=== PATIENT | male | born 1970 | race Caucasian/White ===

== ENCOUNTER 2022-06-05 10:34 | Inpatient (IN) | payer OTHER ==
--- OUTSIDE RECORDS SUMMARY | 2022-06-05 10:38 | XMS REPORT | Continuity of Care Document ---
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 [employer] HMO POS [id number] 2022 00:00:00 QPOS Problems Condition Condition Condition Status Onset Resolution Last Treating Co mments Source Name Details Category Date Date Treatment Clinician Date Prediabete Prediabete Disease Active Vini elsey s s 3- Seybold 00:00: - 00 Externa l Low Low Disease Active Ele testostero testostero -23 Se ybold ne in male ne in male 00:00: - 00 Externa l Class 3 Class 3 Disease Active Ele severe severe 3- Seybold obesity obesity 00:00: - due to due to 00 Externa excess excess l calories calories without without serious serious comorbidit comorbidit y with y with body mass body mass index index (BMI) of (BMI) of 50.0 to 50.0 to 59.9 in 59.9 in adult adult Dyspnea on Dyspnea on Disease Active K elsey exertion exertion 06-05 Seybol d 00:00: - 00 Externa l Family Family Disease Active Ele history of history of 06-05 Se ybold coronary coronary 00:00: - artery artery 00 Externa disease in disease in l father father Snoring Snoring Disease Active Ele 06-05 Seybold 00:00: - 00 Externa l Screening Screening Disease Active Emiliano refugio for lipid for lipid 06-05 Seyb old disorders disorders 00:00: - 00 Externa l Allergies, Adverse Reactions, Alerts Allergy Allergy Status Severity Reaction(s) Onset Inactive Treating Comm ents Source Name Type Date Date Clinician NO KNOWN Allergy Active [facility] Social History Social Habit Start Date Stop Date Quantity Comments Source History SDOH Ele Paresho ld - Alcohol Frequency Externa l History SDOH Ele Parehslauren ld - Alcohol Std Drinks Macadam Raker al History SDOH Ele Paresho ld - Alcohol Binge External Alcohol Comment 2022-06-05 2022-06-05 rarely Ele Se ybold - 00:00:00 00:00:00 External Education 2022-06-05 2022-06-05 18 Ele Seybold - 00:00:00 00:00:00 External Alcohol intake 2022-06-05 2022-06-05 Current drinker Emiliano dolly Noemy - 00:00:00 00:00:00 of alcohol External (finding) Tobacco use and 2022-06-03 2022-06-03 Smokeless tobacco Ke beryl Seybold - exposure 00:00:00 00:00:00 non-user External Sex Assigned At [birth year] [facility] 00:00:00 [facility]00 [facility] Smoking Status Start Date Stop Date Source Never smoked tobacco Ele Yoder old - External Medications Ordered Filled Start Stop Current Ordering Indication Dosage Frequency Signature Comments Components Source Medication Medication Date Date Medication? Clinician (SIG) Name Name Albuterol Yes [id number] 2{puff} Q.25D Inhale 2 Ele HFA 108 (90 3-23 puffs into Se ybold Base) 00:00: the lungs - MCG/ACT IN 00 every 6 Macadam Raker a AERS hours as l needed for wheezing or shortness of breath Testosteron Yes INJECT 1 Ke lsey e Cypionate 2-09 ML Seybold (DEPO-TESTO 00:00: INTRAMUSCU - STERONE) 00 LAR TWICE Macadam Raker a 200 MG/ML A WEEK l intramuscul ar Solution testosteron Yes SMARTSI [facility] cypionate 2-09 Milliliter Katiuska kes (DEPOTESTOT 00:00: (s) IM Medi mony ERONE 00 Twice a Center CYPIONATE) Week 200 mg/mL injection Clobetasol Yes 1 Ele Propionate 2-08 APPLICATIO Sey bold 0.05 % 00:00: N - apply 00 EXTERNALLY Externa externally TWICE A l Ointment DAY 30 DAYS Vital Signs Vital Name Observation Time Observation Value Comments Source Systolic blood 2022-06-05 14:23:00 134 mm[Hg] Ele Seybold - pressure External Diastolic blood 2022-06-05 14:23:00 86 mm[Hg] Tania alberto Seybold - pressure External Heart rate 2022-06-05 14:23:00 56 /min Ele pedrazabold - External Body temperature 2022-06-05 14:23:00 36.72 Ruma Shaniqua ey Seybold - External Respiratory rate 2022-06-05 14:23:00 17 /min Shaniqua pedraza Seybold - External Body height 2022-06-05 14:23:00 188 cm Ele S milobowhit - External Body weight 2022-06-05 14:23:00 185.068 kg Ele S milobold - External BMI 2022-06-05 14:23:00 52.38 kg/m2 Ele pedrazabold - External Oxygen saturation in 2022-06-05 14:23:00 96 /min Ele Salguero - Arterial blood by External Pulse oximetry HEIGHT 2022-05-21 13:18:00 188 cm WEIGHT 2022-05-21 13:18:00 181.484 kg HEIGHT 2022-05-21 13:18:00 188 cm WEIGHT 2022-05-21 13:18:00 181.484 kg Heart rate 2022-05-21 13:18:00 65 /min [facility] Body temperature 2022-05-21 13:18:00 36 Ruma [facility] Body height 2022-05-21 13:18:00 188 cm [facility] Body weight 2022-05-21 13:18:00 181.484 kg [facility] BMI 2022-05-21 13:18:00 51.37 kg/m2 [facility] Systolic blood 2022-05-21 13:18:00 143 mm[Hg] [facility] Diastolic blood 2022-05-21 13:18:00 72 mm[Hg] [facility] Procedures This patient has no known procedures. Plan of Care Planned Activity Planned Date Details Comments Source Future Scheduled 2023-05-[address] [facility] 00:00:00 Counseling and Medical Cente r Screening (12+) [code = Tobacco Cessation Counseling and Screening (12+)] Future Scheduled 2022-03-[address] [facility] 00:00:00 (12+) [code = Medical Center DEPRESSION SCREENING (12+)] Future Scheduled 2021-11-14 INFLUENZA VACCINE (#1) [facility] 00:00:00 [code = INFLUENZA Medical Ce nter VACCINE (#1)] Future Scheduled 2019-08-22 SHINGLES VACCINES ([address] [facility] 00:00:00 2) [code = SHINGLES [facility] VACCINES (1 of 2)] Future Scheduled 2004 Lipid panel (procedure) [facility] 00:00:00 [code = 25609548] Medical Ce nter Future Scheduled 1988 DTAP/TDAP/TD VACCINES [facility] 00:00:00 (1 - Tdap) [code = Medical C enter DTAP/TDAP/TD VACCINES (1 - Tdap)] Future Scheduled 1987-08-22 HEPATITIS C SCREENING [facility] 00:00:00 [code = HEPATITIS C Medical Center SCREENING] Future Scheduled 1970-02-20 COVID-19 VACCINE (#1) [facility] 00:00:00 [code = COVID-[address] VACCINE (#1)] Future Scheduled 1969 CT Colonography (combo) [facility] 00:00:00 [code = CT Colonography [facility] (combo)] Future Scheduled 1970 Screening for malignant [facility] 00:00:00 neoplasm of colon Medical Ce nter (procedure) [code = 184064610] Future Scheduled 1969 Screening for malignant [facility] 00:00:00 neoplasm of colon Medical Ce nter (procedure) [code = 914687045] Future Scheduled 1969 Screening for malignant [facility] 00:00:00 neoplasm of colon Medical Ce nter (procedure) [code = 384906090] Future Scheduled 1969 Screening for malignant [facility] 00:00:00 neoplasm of colon Medical Ce nter (procedure) [code = 828207020] Future Scheduled 1970 Sigmoidoscopy [code = [facility] End Encounter Admission Attending Care Care Encounter Source Date/Time Date/Time Type Type Clinicians Facility Department ID 2022-06-19 2022-06-19 Outpatient ELE REAGAN [id number] Ele 11:30:00 11:30:00 ARELI braga 2022-06-05 2022-06-05 Outpatient ELE REAGAN [id number] Ele 09:15:00 09:15:00 ARELI braga 2022-05-21 2022-05-21 Outpatient EL USAMA [facility] [id number] 13:07:03 13:52:07 [facility] 2022-05-21 2022-05-21 Office Usama [facility] [id number] 13:00:00 13:52:07 Visit [facility] 2022-05-19 2022-05-19 Outpatient ELE REAGAN [id number] Ele 00:00:00 00:00:00 ARELI braga 2022-04-29 2022-04-29 Telephone Hernandez [facility] [id number] 00[facility] 00[facility]00 [facility] Results This patient has no known results.
[2022-06-05] MEDS ORDERED: dilTIAZem HCL 25 MG/5 ML VIAL IV ONE (10:54)
[2022-06-05] MEDS ORDERED: NA CHLORIDE 0.9% 500 ML ONE (11:12)
[2022-06-05 11:13] LABS: Absolute Lymphocytes (CBC) 2.3 K/uL (0.7-4.9); Hematocrit 54.1 % (39.6-49.0); MPV 8.1 fL (7.6-11.3); Protime INR 1.17; RBC Red Blood Cell Count 6.36 M/uL (4.33-5.43)
[2022-06-05 11:30] LABS: Albumin 3.9 g/dL (3.4-5.0); Bilirubin Direct 0.2 mg/dL (0-0.2); Bilirubin Total 0.9 mg/dL (0.2-1.0); Magnesium 2.2 mg/dL (1.6-2.4); Potassium 4.3 mEq/L (3.5-5.1); Protein, Total 7.4 g/dL (6.4-8.2); Troponin High Sensitivity 11.1 pg/mL (<58.9)
[2022-06-05 11:55] LABS: SARS-COV-2 RT PCR NEGATIVE (NEGATIVE)
--- NOTE | 2022-06-05 12:15 | RAD REPORT ---
EXAM DESCRIPTION: Simin Single View06/05/2022 12:02 pm CLINICAL HISTORY: Cough COMPARISON: none FINDINGS: The lungs appear clear of acute infiltrate. The heart is probably upper limits normal siz e IMPRESSION: No acute abnormalities displayed
--- NOTE | 2022-06-05 12:21 | ER ---
Nurse's Notes [facility] Name: Juan Alberto Olmos Age: 51 yrs Sex: Male : 1970 Arrival Date: 06/05/2022 Time: 10:37 Bed 4 Private MD: Diagnosis: New onset Atrial Fibrillation with Rapid Ventricular Response Presentation: 06/05 10:37 Chief complaint: Patient states: sent by Dr. Sanchez for A-fib with RVR. Pt reports SOB aa5 for "months". Pt states "I hadn't seen a doctor in about 15 years". Coronavirus screen: shortness of breath. Ebola Screen: Patient denies travel to an Ebola-affected area in the 21 days before illness onset. Initial Sepsis Screen: Does the patient meet any 2 criteria? RR > 20 per min. HR > 90 bpm. Yes Does the patient have a suspected source of infection? No. Patient's initial sepsis screen is negative. Risk Assessment: Do you want to hurt yourself or someone else? Patient reports no desire to harm self or others. Onset of symptoms was June 05, 2022. 10:37 Method Of Arrival: Ambulatory aa5 10:37 Acuity: ESTELLA 2 aa5 Historical: - Allergies: 10:38 No Known Allergies; aa5 - Home Meds: 10:38 testosterone [Active]; aa5 - PMHx: 10:38 None; aa5 - PSHx: 10:38 Pyloric stenosis; aa5 - Immunization history:: Adult Immunizations unknown. - Social history:: Smoking status: unknown. Screenin:23 [facility] ED Fall Risk Assessment (Adult) History of falling in the last 3 months, jl7 including since admission No falls in past 3 months (0 pts) Confusion or Disorientation No (0 pts) Intoxicated or Sedated No (0 pts) Impaired Gait No (0 pts) Mobility Assist Device Used No (0 pt) Altered Elimination No (0 pt) Score/Fall Risk Level 0 - 2 = Low Risk Oriented to surroundings, Maintained a safe environment. Abuse screen: Denies threats or abuse. Denies injuries from another. Nutritional screening: No deficits noted. Tuberculosis screening: No symptoms or risk factors identified. Assessment: 11:00 General: Appears in no apparent distress. uncomfortable, Behavior is calm, cooperative, jl7 appropriate for age. Pain: Denies pain. Neuro: Level of Consciousness is awake, alert, obeys commands, Oriented to person, place, time, situation. Cardiovascular: Heart tones present Patient's skin is warm and dry. Rhythm is atrial fibrillation with rapid ventricular response. Respiratory: Airway is patent Respiratory effort is even, unlabored, Respiratory pattern is regular, symmetrical. Derm: Skin is pink, warm \\T\\ dry. 12:36 Reassessment: Hospitalist DIGITAL CARTOGRAPHER at bedside assessing pt. [facility] Vital Signs: 10:37 BP 118 / 96; Pulse 130; Resp 22 S; Temp 98.1(O); Pulse Ox 96% on R/A; Weight 185.52 kg; aa5 11:23 BP 138 / 84; Pulse 108; Resp 17; Pulse Ox 93% ; Pain 0/10; jl7 12:41 BP 136 / 92; Pulse 119; Resp 14; Pulse Ox 95% ; jl7 14:30 BP 97 / 61; Pulse 108; Resp 19; Pulse Ox 95% on R/A; jl7 11:23 Pain Scale: Adult [facility] ED Course: 10:37 Patient arrived in ED. ss 10:37 Arm band placed on. aa5 10:39 Supriya Razo FNP is PHCP. jh7 10:39 Alexey Vo MD is Attending Physician. 7 10:47 Sourav Summers, RN is Primary Nurse. bp 10:48 Triage completed. aa5 10:50 Initial lab(s) drawn, by il, sent to lab. EKG done, by ED staff, reviewed by Supriya OVERTON COVID swab sent to lab. Flu and/or RSV swab sent to lab. Inserted saline lock: 20 gauge in left antecubital area, using aseptic technique. Blood collected. 11:20 Jessica Story, RN is Primary Nurse. jl7 11:23 Patient has correct armband on for positive identification. Placed in gown. Bed in low jl7 position. Call light in reach. Side rails up X 1. Client placed on continuous cardiac and pulse oximetry monitoring. NIBP monitoring applied. 12:04 XRAY Chest (1 view) In Process Unspecified. EDMS 12:19 Page Sosa MD is Hospitalizing Provider. [facility] 15:19 No provider procedures requiring assistance completed. Patient admitted, IV remains in jl7 place. intact, No redness/swelling at site. Administered Medications: 10:54 Drug: Diltiazem IVP 5 mg Route: IVP; Site: left antecubital; jl7 12:00 Follow up: Response: No adverse reaction; Cardiac rhythm is unchanged; HR decreased, jl7 remains in a. fib RVR 11:10 Drug: Sodium Chloride 0.9% IVPB 500 ml Route: IVPB; Site: left antecubital; jl7 12:00 Follow up: Response: No adverse reaction; IV Status: Completed infusion; IV Intake: jl7 500ml Medication: 11:23 VIS not applicable for this client. jl7 Intake: 12:00 IV: 500ml; Total: 500ml. jl7 Outcome: 12:20 Decision to Hospitalize by Provider. 7 15:19 Admitted to Tele accompanied by nurse, via wheelchair, room 408, with chart, Report jl7 called to MAZIN Camacho 15:19 Condition: stable 15:19 Discharge instructions given to patient, Instructed on the need for admit, Demonstrated understanding of instructions. 15:23 Patient left the ED. jl7 Signatures: Dispatcher [employer] EDMS Li Paz RN RN aa5 Lilliana Taylor RN RN ss Leal, Jahala, RN RN jl7 Sourav Summers RN RN bp Hadash, Jennifer, FNP FNP 7 Corrections: (The following items were deleted from the chart) 10:49 10:37 Initial Sepsis Screen: Does the patient meet any 2 criteria? HR > 90 bpm. Does aa5 the patient have a suspected source of infection? No. Patient's initial sepsis screen is negative. aa5 10:49 10:38 Home Meds: None; aa5 aa5 12:42 12:37 BP 104 / 74; Pulse 75bpm; Resp 15bpm; Pulse Ox 94%; Pain 7/10, Adult; jl7 jl7
--- NOTE | 2022-06-05 12:21 | EDPHYS ---
Physician Documentation [facility] Name: Juan Alberto Olmos Age: 51 yrs Sex: Male : 1970 Arrival Date: 06/05/2022 Time: 10:37 Bed 4 Private MD: ED Physician Alexey Vo HPI: 06/05 10:35 This 51 yrs old Male presents to ER via Ambulatory with complaints of sent by Dr. vianey Sanchez. 10:35 Onset: The symptoms/episode began/occurred 4 month(s) ago. Associated signs and [facility] symptoms: Pertinent positives: cough, Wheezing, lightheadedness. 51-year-old male sent by Presents for new onset A-fib RVR. The patient denies any symptoms at this time. Reports that in January he had RSV and has had a chronic cough, wheezing, and lightheadedness since then. Reports that he has not seen a doctor in 30 years and made an appointment with Dr. De Jesus today to get evaluated. Denies any past medical history or medications.. Historical: - Allergies: 10:38 No Known Allergies; aa5 - Home Meds: 10:38 testosterone [Active]; aa5 - PMHx: 10:38 None; aa5 - PSHx: 10:38 Pyloric stenosis; aa5 - Immunization history:: Adult Immunizations unknown. - Social history:: Smoking status: unknown. ROS: 10:35 Constitutional: Negative for fever, chills, and weight loss, Eyes: Negative for injury, jh7 pain, redness, and discharge, ENT: Negative for injury, pain, and discharge, Cardiovascular: Negative for chest pain, palpitations, and edema, Respiratory: Negative for shortness of breath, cough, wheezing, and pleuritic chest pain, Abdomen/GI: Negative for abdominal pain, nausea, vomiting, diarrhea, and constipation, Back: Negative for injury and pain, MS/Extremity: Negative for injury and deformity, Skin: Negative for injury, rash, and discoloration, Neuro: Negative for headache, weakness, numbness, tingling, and seizure. 10:35 All other systems are negative. Exam: 10:35 Constitutional: This is a well developed, well nourished patient who is awake, alert, jh7 and in no acute distress. Head/Face: Normocephalic, atraumatic. Eyes: Pupils equal round and reactive to light, extra-ocular motions intact. Lids and lashes normal. Conjunctiva and sclera are non-icteric and not injected. Cornea within normal limits. Periorbital areas with no swelling, redness, or edema. Cardiovascular: Regular rate and rhythm with a normal S1 and S2. No gallops, murmurs, or rubs. Normal PMI, no JVD. No pulse deficits. Respiratory: Lungs have equal breath sounds bilaterally, clear to auscultation and percussion. No rales, rhonchi or wheezes noted. No increased work of breathing, no retractions or nasal flaring. Abdomen/GI: Soft, non-tender, with normal bowel sounds. No distension or tympany. No guarding or rebound. No evidence of tenderness throughout. Skin: Warm, dry with normal turgor. Normal color with no rashes, no lesions, and no evidence of cellulitis. MS/ Extremity: Pulses equal, no cyanosis. Neurovascular intact. Full, normal range of motion. Neuro: Awake and alert, GCS 15, oriented to person, place, time, and situation.Motor strength 5/5 in all extremities. Sensory grossly intact. Normal gait. Vital Signs: 10:37 BP 118 / 96; Pulse 130; Resp 22 S; Temp 98.1(O); Pulse Ox 96% on R/A; Weight 185.52 kg; aa5 11:23 BP 138 / 84; Pulse 108; Resp 17; Pulse Ox 93% ; Pain 0/10; jl7 12:41 BP 136 / 92; Pulse 119; Resp 14; Pulse Ox 95% ; jl7 14:30 BP 97 / 61; Pulse 108; Resp 19; Pulse Ox 95% on R/A; jl7 11:23 Pain Scale: Adult jl7 MDM: 10:39 Patient medically screened. [facility] 12:20 Differential diagnosis: New onset atrial fibrillation with rapid ventricular response. [facility] Data reviewed: vital signs, nurses notes, lab test result(s), EKG, radiologic studies, plain films. Consideration of Admission/Observation Patient was admitted/placed on observation. Management of patient was discussed with the following: Hospitalist: JUAN Templeton with Dr. Ian linaresist. Pack Worker: Dr. Elizabeth, Cardiology. I considered the following discharge prescriptions or medication management in the emergency department Medications were administered in the Emergency Department. See MAR. Independent interpretation of the following test(s) in the Emergency Department EKG: See my EKG interpretation above. Counseling: I had a detailed discussion with the patient and/or guardian regarding: the historical points, exam findings, and any diagnostic results supporting the discharge/admit diagnosis, the need for further work-up and treatment in the hospital. Response to treatment: the patient's symptoms have markedly improved after treatment. ED course: Admitted the patient to Dr. Sosa and consulted Dr. Elizabeth who did not advise anticoagulation due to [id number] score of 0. . 06/05 10:49 Order name: Basic Metabolic Panel; Complete Time: 11:41 [facility] 06/05 10:49 Order name: CBC with Diff; Complete Time: 11:23 [facility] 06/05 10:49 Order name: LFT's; Complete Time: 11:41 [facility] 06/05 10:49 Order name: Magnesium; Complete Time: 11:41 [facility] 06/05 10:49 Order name: NT PRO-BNP; Complete Time: 11:41 [facility] 06/05 10:49 Order name: PT-INR; Complete Time: 11:23 [facility] 06/05 10:49 Order name: Troponin HS; Complete Time: 11:41 [facility] 06/05 10:49 Order name: COVID-19/FLU A+B; Complete Time: 11:55 [facility] 06/05 13:20 Order name: Hemoglobin A1c; Complete Time: 14:33 [facility] 06/05 13:20 Order name: T4 Free; Complete Time: 14:33 [facility] 06/05 13:20 Order name: Thyroid Stimulating Hormone; Complete Time: 14:33 [facility] 06/05 13:20 Order name: Urinalysis w/ reflexes [facility] 06/05 13:20 Order name: Basic Metabolic Panel [facility] 06/05 13:20 Order name: Basic Metabolic Panel [facility] 06/05 13:20 Order name: Basic Metabolic Panel [facility] 06/05 13:20 Order name: Basic Metabolic Panel [facility] 06/05 13:20 Order name: Lipid Profile [facility] 06/05 13:20 Order name: Lipid Profile [facility] 06/05 10:49 Order name: XRAY Chest (1 view); Complete Time: 12:17 [facility] 06/05 10:49 Order name: EKG; Complete Time: 10:50 [facility] 06/05 13:20 Order name: Heart Healthy EDMS 06/05 10:49 Order name: Cardiac monitoring; Complete Time: 10:59 [facility] 06/05 10:49 Order name: EKG - Nurse/Tech; Complete Time: 10:58 [facility] 06/05 10:49 Order name: IV Saline Lock; Complete Time: 11:08 [facility] 06/05 10:49 Order name: Labs collected and sent; Complete Time: 11:08 [facility] 06/05 10:49 Order name: O2 Per Protocol; Complete Time: 10:59 [facility] 06/05 10:49 Order name: O2 Sat Monitoring; Complete Time: 10:58 [facility] EC:35 Rate is 119 beats/min. Rhythm is regular. QRS [place] is Normal. QRS interval is normal at [facility] 76 msec. QT interval is normal at 308 msec. Clinical impression: Atrial Fibrillation. Administered Medications: 10:54 Drug: Diltiazem IVP 5 mg Route: IVP; Site: left antecubital; 7 12:00 Follow up: Response: No adverse reaction; Cardiac rhythm is unchanged; HR decreased, jl7 remains in a. fib RVR 11:10 Drug: Sodium Chloride 0.9% IVPB 500 ml Route: IVPB; Site: left antecubital; 7 12:00 Follow up: Response: No adverse reaction; IV Status: Completed infusion; IV Intake: jl7 500ml Disposition: 14:34 I reviewed the patient's care provided by Advanced Practice Provider \T\ agree w/ [facility] diagnosis \T\ care plan. I personally saw the pt \T\ performed a substantive portion of the visit, incldng all aspects of the (History/Exam/Medical Decision Making). Disposition Summary: 06/05/22 12:20 Hospitalization Ordered Hospitalization Status: Inpatient Admission [facility] Provider: Page Sosa Location: Telemetry/MedSurg (Inpatient) [facility] Condition: Stable [facility] Problem: new [facility] Symptoms: are unchanged [facility] Bed/Room Type: Standard [facility] Room Assignment: 408(06/05/22 14:21) dw Diagnosis - New onset Atrial Fibrillation with Rapid Ventricular Response [facility] Forms: - Medication Reconciliation Form [facility] - SBAR form [facility] Critical care time excluding procedures: 14:35 Critical care time: Bedside Care: 10 minutes, Consultation: 11 minutes, Family jr11 Intervention: 10 minutes. Total time: 31 minutes Signatures: Dispatcher [employer] Krys Edwards Diana, RN RN dw Li Paz RN RN aa5 Jessica Story RN RN jl7 Alexey Vo MD MD jr11 Supriya Razo F[place]ox North7 Corrections: (The following items were deleted from the chart) 10:49 10:38 Home Meds: None; aa5 aa5 14:20 12:20 7 14:21 14:[address] [place] [address]
[2022-06-05] MEDS ORDERED: ONDANSETRON 4 MG/2 ML VIAL IV PRN (13:12)
[2022-06-05] MEDS ORDERED: ACETAMINOPHEN 500 MG TAB PO PRN (13:12)
[2022-06-05] MEDS ORDERED: SOTALOL HCL 80 MG TAB PO ONE ×2 (13:15→21:00)
--- NOTE | 2022-06-05 13:23 | P.HP ---
Certification for Inpatient Patient admitted to: Inpatient With expected LOS: >2 Midnights Patient will require the following post-hospital care: None Practitioner: I am a practitioner with admitting privileges, knowledge of patient current condition, hospital course, and medical plan of care. Services: Services provided to patient in accordance with Admission requirements found in Title 42 Section 412.3 of the Code of Federal Regulations Patient History Date of Service: 06/05/22 Primary Care Provider: Neal Reason for admission: New onset afib History of Present Illness: This is a 51-year-old male with no known prior medical history. Patient presents to the emergency room as recommended by his PCP with complaints of new onset A-fib. Patient reports having RSV 6 weeks ago with wheezing and hypoxia and the reason is made his appointment to go see his PCP. Patient reports that he started feeling better and almost canceled his appointment. He denies any associated symtoms. Patient currently states that he feels much better. Patient was treated with Cardizem in the ER, his current rate ranges between 100-110 bpm. Patient denies any history of alcohol or drug intake. He does reports some anxiety relating to life and high stress. He also report an increase in weight of 40 lbs since March. Patient reports a fairly healthy diet with less than 2000 mony consumed daily. Patient reports no exercise since March but prior to that, he used to run and lift weights 3-5 times a week. Patient report being diagnosed with prediabetes 30 years ago. A1C pending. Patient was seen by cardiology in the ER. We will start patient on sotalol 80 mg with first dose now second dose at 2100. And then Sotalol 80 mg twice daily. Allergies No Known Allergies Allergy (Unverified 06/05/22 13:28) Home Medications: NK [No Home Meds] 06/05/22 - Past Medical/Surgical History -: Pyloric stenosis Past Surgical History: Patient denies surgical history - Family History Father -: Heart disease - Social History Smoking Status: Never smoker Alcohol use: No CD- Drugs: No Caffeine use: Yes Place of Residence: Home Review of Systems 10-point ROS is otherwise unremarkable Physical Examination - Vital Signs Temperature: 98.1 F Blood Pressure: 136/92 Pulse: 102 Respirations: 18 Pulse Ox (%): 93 - Physical Exam General: Alert, In no apparent distress, Oriented x3 HEENT: Atraumatic, Normocephalic Neck: Supple Respiratory: Clear to auscultation bilaterally, Normal air movement Cardiovascular: Normal pulses Gastrointestinal: Normal bowel sounds Musculoskeletal: No clubbing, No contractures Integumentary: No rashes, No breakdown Neurological: Normal speech, Normal strength at 5/5 x4 extr, Normal tone, Sensation intact Lymphatics: No axilla or inguinal lymphadenopathy - Studies Laboratory Data (last 24 hrs) 06/05/22 10:58: PT 12.9 H, INR 1.17 06/05/22 10:58: WBC 9.10, Hgb 17.8, Hct 54.1 H, Plt Count 238 06/05/22 10:58: Sodium 136, Potassium 4.3, BUN 10, Creatinine 1.08, Glucose 107 H, Magnesium 2.2, Total Bilirubin 0.9, AST 24, ALT 36, Alkaline Phosphatase 46 Assessment and Plan - Plan Assessment New onset afib Prediabetic Morbid obesity Plan Cardiology consulted, patient was evaluated at the bedside. Will start patient on Sotalol 80 mg BID. He will received 80 mg now, then 80 mg at 2100. Then resume scheduled dose tomorrow Continue telemetry Counseled on diet and exercise and stress relieving measures A1C pending DVT PPX- Lovenox Full code Discharge Plan: Home Plan to discharge in: 48 Hours - Advance Directives Does patient have a Living Will: No Does patient have a Durable POA for Healthcare: No - Code Status/Comfort Care Code Status Assessed: Yes (Full code) Critical Care: No Time Spent Managing Pts Care (In Minutes): 50
[2022-06-05 14:12] LABS: Thyroid Stimulating Hormone 1.96 uIU/mL (0.358-3.740)
[2022-06-05] MEDS ORDERED: ASPIRIN 81 MG CHEWABLE TABLET ONE (15:03)
--- NOTE | 2022-06-05 15:48 | EKG ---
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
[2022-06-05 16:07] VITALS: BMI 51.0
--- NOTE | 2022-06-05 16:53 | CON ---
Date of Consultation: 06/05/2022 Reason For Consultation: Atrial fibrillation, new onset. History Of Present Illness: A 51-year-old male, obese with obstructive sleep apnea history, presente d with atrial fibrillation with rapid ventricular response. He apparently had some palpitations michael ier, so he booked an appointment to see his primary care physician. He was feeling okay today, so he did not want to even go to the appointment, but his pushed him to do so, and then he was found to be in atrial fibrillation with rapid ventricular response and he said he was asymptomatic. Upon e valuation in the emergency room, the patient was in AFib with mild tachycardia. Denies having any ch est pain or shortness of breath. No other complaints. Past Medical History: Obesity and obstructive sleep apnea. Medications: Refer to reconciliation sheet for detailed list. Allergies: NO KNOWN DRUG ALLERGIES. Family History: No premature coronary artery disease or cancer. Social History: He does not smoke. He drinks only socially on occasions. Does not use drugs. Review of Systems: All systems reviewed and they were negative except what mentioned in HPI. Physical Examination: Vital Signs: Reviewed. Head and Neck: Pupils are equal, reactive to light. Intact eye movements. No JVD. No cervical lym phadenopathy. Neck is supple. Thyroid is not enlarged. Lungs: Clear to auscultation bilaterally. No rhonchi, wheezing, or crackles. No accessory muscle u se. Heart: Irregularly irregular. No extra sounds. Abdomen: Soft, nontender. Bowel sounds positive. No organomegaly. No masses or hernia. No rigidi ty or rebound. Extremities: No clubbing or cyanosis. Intact pulses. Skin: No rash. Neurologic: Alert, awake, oriented x3. No acute focal deficits appreciated. Lymph Nodes: No cervical or axillary lymphadenopathy. Investigations: BUN 10, creatinine 1.08. Hemoglobin A1c was 5.9. NT-proBNP is 245 and troponin is 11.1, TSH is 1.9, hemoglobin is . Assessment And Plan: 1.Atrial fibrillation with rapid ventricular response. Start sotalol 80 mg twice a day and his LYUBOV S-VASc score is 0, so baby aspirin 81 mg daily. Monitor on telemetry after the third dose of sotalol and EKG to be done. If the QTc interval is normal, then it will be his maintenance dose. 2.Elevated blood sugar, but hemoglobin A1c is normal. 3.Elevated NT-proBNP. We will obtain an echo during this hospital stay. /RAMÍREZ Voice ID: [id number] Report ID: [id number]
[2022-06-05] MEDS ORDERED: INFLUENZA VACCINE (for 6+ mo) 0.5 ML DOSE IMVAC ONE (18:30)
[2022-06-05 21:01] LABS: Specific Gravity > 1.030 (1.005-1.030); Urine Bacteria <20 /HPF (<20); Urine Blood Negative (Negative); Urine Clarity Clear (Clear); Urine Color Yellow (Yellow); Urine Glucose NEGATIVE (Negative); Urine Granular Casts 0-5 /LPF (None Seen); Urine Mucus 3+ /HPF (None Seen); Urine Protein 1+ (Negative); Urine RBC <5 /HPF (None Seen); Urine Urobilinogen 3+ (Normal)
[2022-06-05 21:02] LABS: Urine Bilirubin NEGATIVE (Negative)
[2022-06-06] MEDS: SOTALOL HCL 80 MG TAB PO SCH ×2 (05:22→17:01)
[2022-06-06 05:48] LABS: Phosphorus 3.6 mg/dL (2.5-4.9); Potassium 3.9 mEq/L (3.5-5.1)
[2022-06-06] MEDS ORDERED: SOTALOL HCL 80 MG TAB PO ONE (07:37)
[2022-06-06] MEDS ORDERED: ASPIRIN 81 MG CHEWABLE TABLET PO SCH (09:00)
[2022-06-06] MEDS ORDERED: POTASSIUM CL SA 10 MEQ TAB PO ONE (09:00)
[2022-06-06] MEDS ORDERED: ENOXAPARIN 40 MG/0.4 ML SQ SCH (09:00)
[2022-06-06 15:09] VITALS: O2SAT 91
[2022-06-06 16:24] VITALS: BP 124/78; TEMP 97.5
--- NOTE | 2022-06-09 12:37 | EKG ---
Test Date: 2022-06-06 Test Time: 01:13:52 Thermodynamics Engineer: 33 MEASUREMENT RESULTS: Intervals: Rate: 91 [place]: QRSD: 80 QT: 368 QTc: 452 [place]: P: [place]: QRS: -26 T: 61 INTERPRETIVE STATEMENTS: Atrial fibrillation Otherwise normal ECG Electronically Signed On 06-09-22 12:29:17 CDT by Chandler Elizabeth
== END 2022-06-06 18:21 | disposition home or self-care (01) | DRG 309 ==
LOC: ER 10:34 → ERHOLD 13:11 → 4TH 14:39
PROVIDERS: ADMIT Hospitalist; ATTEND Hospitalist
PROC: 5A09357 Assistance with Respiratory Ventilation, Less than 24 Consecutive Hours, Continuous Positive Airway Pressure (ICD-10-PCS; principal; 2022-06-06)
DX: I48.91 Unspecified atrial fibrillation (principal); Z68.43 Body mass index [BMI] 50.0-59.9, adult; E66.01 Morbid (severe) obesity due to excess calories; G47.33 Obstructive sleep apnea (adult) (pediatric); R73.03 Prediabetes; Z79.899 Other long term (current) drug therapy; Z20.822 Contact with and (suspected) exposure to COVID-19
CPT/HCPCS: 0240U; 36415; 71045; 80048; 80061; 80076; 81001; 83036; 83735; 83880; 84100; 84439; 84443; 84484; 85025; 85610; 93005; 94660; 96365; 96375; 99285; J1650; J7040